=== PATIENT | male | born 1980 | race American Indian/Alaskan Native ===

== ENCOUNTER 2018-08-21 21:48 | Emergency (ER) | payer SELFPAY ==
[2018-08-21] MEDS ORDERED: XYLOCAINE 2%/ EPI 1:200,000 INFILTRATI ONE (23:08)
[2018-08-21] MEDS ORDERED: NORCO 5/325 ONE (23:09)
[2018-08-21] MEDS ORDERED: NORCO 5/325 PO ONE (23:10)
--- NOTE | 2018-08-21 23:39 | Emergency Department Report ---
ED Laceration HPI - HPI Chief Complaint: Wound/Laceration Stated Complaint: LEFT ARM LACERATION Time Seen by Provider: 08/21/18 23:34 Occurred When: Today Tetanus Status: Up to Date Other History: 37-year-old -Mal[place] male presents to the emergency room stating that he was [place] full [place] approximate one hour prior to arrival and has a laceration to his left upper arm. Patient reports his last tetanus shot was one year ago. He reports police have been notified. She denies any other past medical history takes no medications and has no known drug allergies. ED Review of Systems ROS: Stated complaint: LEFT ARM LACERATION Other details as noted in HPI Comment: All other systems reviewed and negative Skin: other (cut to left deltoid) ED Past Medical Hx - Past Medical History Previous Medical History?: No Additional medical history: denies - Surgical History Past Surgical History?: No Additional Surgical History: denies - Social History Smoking Status: Current Every Day Smoker Substance Use Type: None - Medications Home Medications: Home Medications Medication Instructions Recorded Confirmed Last Taken Type HYDROcodone/APAP 5-325 [[place] 1 each PO Q6HR PRN #20 tablet 11/08/13 Unknown Rx 5/325 mg] Naproxen [Naprosyn] 500 mg PO BID #30 tablet 11/08/13 Unknown Rx Cephalexin [Keflex] 500 mg PO BID #14 capsule 08/21/18 Unknown Rx Laceration Physical Exam - Exam General: Vital signs noted. No distress. Alert and acting appropriately. Wound Length (cm): 5 Laceration Location: Upper Extremity (F deltoid) Laceration Exam: Yes Exposed Tendon, Vessel, or Nerve, Yes Normal Distal CMS, No Foreign Body, No Tendon Injury ED Course Vital Signs 08/21/18 08/21/18 21:57 23:11 Temperature 98.8 F Pulse Rate 90 Respiratory 18 18 Rate Blood Pressure 127/91 O2 Sat by Pulse 98 Oximetry - Laceration /Wound Repair Left Arm Wound Location: upper extremity (deltoid) Wound Length (cm): 5 Wound's Depth, Shape: into muscle, linear Wound Explored: no foreign body removed Irrigated w/ Saline (ccs): 45 Betadine Prep?: Yes Anesthesia: Lidocaine w/ Epi Volume Anesthetic (ccs): 4 Wound Debrided: minimal Wound Repaired With: sutures Suture Size/Type: 4:0, proline Number of Sutures: 5 Layer Closure?: No Sterile Dressing Applied?: Yes Progress: Patient tolerated procedure well ED Medical Decision Making - Medical Decision Making Patient has been evaluated by this provider in fast track. Patient was given [place] 5/325 mg for pain management. Patient's laceration was repaired with sutures. Patient is up-to-date on tetanus. Patient be placed on Keflex prophylactically for infection. Discussed the patient returned back to the emergency room in 7-10 days for sutures to be removed. Patient verbalizes understanding Critical care attestation.: If time is entered above; I have spent that time in minutes in the direct care of this critically ill patient, excluding procedure time. ED Disposition Clinical Impression: Laceration of arm Qualifiers: Encounter type: initial encounter Laterality: left Qualified Code(s): S41.112A - Laceration without foreign body of left upper arm, initial encounter Disposition: TO HOME OR SELFCARE Is pt being admited?: No Does the pt Need Aspirin: No Condition: Stable Instructions: Suture Care (ED), Laceration (ED) Additional Instructions: Please take antibiotics as prescribed. Please take [id number] pain medication such as Aleve, Motrin or Tylenol for pain management. Please keep the site clean and dry dressing change daily. Return back to emergency room 7- 10 days for suture removal. Return sooner if there is any signs of infection such as swelling redness or purulent discharge. Prescriptions: Cephalexin [Keflex] 500 mg PO BID #14 capsule Referrals: [facility] [Provider Group] - 3-5 Days Forms: Work/School Release Form(ED)
[2018-08-22 00:03] VITALS: BP 124/88
== END 2018-08-21 23:55 | disposition home or self-care (01) ==
LOC: ED 21:48
DX: S41.112A Laceration without foreign body of left upper arm, initial encounter (principal); F17.200 Nicotine dependence, unspecified, uncomplicated; W26.8XXA Contact with other sharp object(s), not elsewhere classified, initial encounter; Y93.89 Activity, other specified; Y92.89 Other specified places as the place of occurrence of the external cause; Y99.8 Other external cause status
CPT/HCPCS: 99282

== ENCOUNTER 2018-08-29 10:04 | Emergency (ER) | payer SELFPAY ==
--- NOTE | 2018-08-29 11:15 | Emergency Department Report ---
Suture/Staple Removal - [facility] Chief Complaint: Laceration/Recheck/Suture Stated Complaint: STITCHES REMOVAL Time Seen by Provider: 08/29/18 11:14 When Sutures or [place] Placed: 5-7 Days Ago Wound Location: left upper arm ED Review of Systems ROS: Stated complaint: STITCHES REMOVAL Other details as noted in HPI Constitutional: denies: chills, fever Eyes: denies: eye pain, eye discharge, vision change ENT: denies: ear pain, throat pain Respiratory: denies: cough, shortness of breath, wheezing Cardiovascular: denies: chest pain, palpitations Endocrine: no symptoms reported Gastrointestinal: denies: abdominal pain, nausea, diarrhea Genitourinary: denies: urgency, dysuria Musculoskeletal: denies: back pain, joint swelling, arthralgia Skin: denies: rash, lesions Neurological: denies: headache, weakness, paresthesias Psychiatric: denies: anxiety, depression Hematological/Lymphatic: denies: easy bleeding, easy bruising ED Past Medical Hx - Past Medical History Previous Medical History?: No Additional medical history: denies - Surgical History Past Surgical History?: No Additional Surgical History: denies - Social History Smoking Status: Never Smoker Substance Use Type: None - Medications Home Medications: Home Medications Medication Instructions Recorded Confirmed Last Taken Type HYDROcodone/APAP 5-325 [[place] 1 each PO Q6HR PRN #20 tablet 11/08/13 Unknown Rx 5/325 mg] Naproxen [Naprosyn] 500 mg PO BID #30 tablet 11/08/13 Unknown Rx Cephalexin [Keflex] 500 mg PO BID #14 capsule 08/21/18 Unknown Rx Acetaminophen/Codeine [Tylenol 1 tab PO Q6H PRN #12 tab 08/29/18 Unknown Rx /Codeine # 3 tab] Suture Removal Exam - Exam General: Vital signs noted. No distress. Alert and acting appropriately. Wound: No Pathologic Erythema, No Tenderness, No Drainage, No Pus, No Wound Dehiscence Other Systems: All other systems reviewed and are unremarkable. ED Course Vital Signs 08/29/18 10:16 Temperature 99.0 F Pulse Rate 76 Respiratory 16 Rate Blood Pressure 121/77 O2 Sat by Pulse 100 Oximetry - Reevaluation(s) Reevaluation #1: 08/29/18 11:15 Patient is speaking in full sentences with no signs of distress noted. ED Recheck MDM - Medical Decision Making This is a 37-year-old male that presents with suture removal. She is stable and was examined by me. Total of 5 sutures has been removed and patient tolerated well. No signs of wound dehiscence, drainage, or cellulitis. Patient was referred to Follow-up with a primary care doctor in 3-5 days or if symptoms worsen and continue return to emergency room as soon as possible. At time of discharge, the patient does not seem toxic or ill in appearance. No acute signs of distress noted. Patient agrees to discharge treatment plan of care. No further questions noted by the patient. Critical care attestation.: If time is entered above; I have spent that time in minutes in the direct care of this critically ill patient, excluding procedure time. ED Disposition Clinical Impression: Visit for suture removal Disposition: [id number] TO HOME OR SELFCARE Is pt being admited?: No Does the pt Need Aspirin: No Condition: Stable Instructions: Suture Removal (ED), Acetaminophen/Codeine (By mouth) Additional Instructions: Follow-up with a primary care doctor in 3-5 days or if symptoms worsen and continue return to emergency room as soon as possible. Do not operate any machinery while taking Tylenol with codeine as this may cause drowsiness. Prescriptions: Acetaminophen/Codeine [Tylenol /Codeine # 3 tab] 1 tab PO Q6H PRN #12 tab PRN Reason: Pain , Severe (7-10) Referrals: PRIMARY CARE, [Referring] - 3-5 Days EVETTE TAYLOR MD [Staff Physician] - 3-5 Days [facility] [Outside] - 3-5 Days [facility] [Outside] - 3-5 Days Forms: Work/School Release Form(ED)
== END 2018-08-29 11:23 | disposition home or self-care (01) ==
LOC: ED 10:04